=== PATIENT | male | born 1995 | race Caucasian/White ===

== ENCOUNTER 2018-08-27 18:13 | Emergency (ER) | payer OTHER ==
[2018-08-27] MEDS ORDERED: Ketorolac 60 MG/2 ML SDV IM ONE (18:32)
--- NOTE | 2018-08-27 18:48 | EDM.PDOC ---
ED HPI GENERAL MEDICAL PROBLEM - General Chief Complaint: Headache Stated Complaint: HEADACHE Time Seen by Provider: 08/27/18 18:16 Source of Information: Reports: Patient History Limitations: Reports: No Limitations - History of Present Illness INITIAL COMMENTS - FREE TEXT/NARRATIVE: History of present illness: []Patient's had a proximal 4 year history of migraine headaches with one starting a week ago that has been persistent. Excedrin Migraine with mild relief. Her's, chills, vomiting or diarrhea. He was nauseated but denies any symptoms now. Patient feels that he has a sinus infection he also feels pressure over his face. Review of systems: As per history of present illness and below otherwise all systems reviewed and negative. Past medical history: As per history of present illness and as reviewed below otherwise noncontributory. Surgical history: As per history of present illness and as reviewed below otherwise noncontributory. Social history: No reported history of drug or alcohol abuse. Family history: As per history of present illness and as reviewed below otherwise noncontributory. Physical exam: General: Well developed, well nourished in NAD HEENT: Atraumatic, normocephalic, pupils reactive, negative for conjunctival pallor or scleral icterus, mucous membranes moist, throat clear, neck supple, nontender, trachea midline. No Nuchal rigidity, mild tenderness to frontal and maxillary sinuses on palpation Lungs: Clear to auscultation, breath sounds equal bilaterally, chest nontender. Heart: S1S2, regular, negative for clicks, rubs, or JVD. Abdomen: NABS, Soft, nondistended, nontender. Negative for masses or hepatosplenomegaly. Negative for costovertebral tenderness. Pelvis: Stable nontender. Genitourinary: Deferred. Rectal: Deferred. Extremities: Atraumatic, negative for cords or calf pain. Neurovascular unremarkable. Neuro: Awake, alert, oriented. Cranial nerves II through XII unremarkable. Cerebellum unremarkable. Motor and sensory unremarkable throughout. Exam nonfocal. Skin:warm and dry Diagnostics: None Therapeutics: Toradol, Zofran ED Course: Unremarkable Impression: Cephalgia Prescriptions: Zofran Plan: Use [id number] pain meds, Zofran for nausea and follow up with primary care. Definitive disposition and diagnosis as appropriate pending reevaluation and review of above. Headache Pain Score (Numeric/FACES): 5 - Related Data Allergies Allergy/AdvReac Type Severity Reaction Status Date / Time No Known Allergies Allergy Verified 08/27/18 18:28 Home Meds: Home Meds Ondansetron HCl [Zofran] 4 mg PO Q4HR #12 tablet 08/27/18 [Rx] SUMAtriptan [Imitrex] 50 mg PO ASDIRECTED PRN #6 tablet 08/27/18 [Rx] Past Medical History - Past Health History Medical/Surgical History: Denies Medical/Surgical History Musculoskeletal History: Reports: Other (See Below) Other Musculoskeletal History: right knee tore acl. - Infectious Disease History Infectious Disease History: Reports: Mononucleosis - Past Surgical History HEENT Surgical History: Reports: Tonsillectomy Musculoskeletal Surgical History: Reports: Other (See Below) Other Musculoskeletal Surgeries/Procedures:: knee surgery Social & Family History - Family History Family Medical History: Noncontributory - Tobacco Use Smoking Status *Q: Never Smoker - Caffeine Use Caffeine Use: Reports: Energy Drinks - Recreational Drug Use Recreational Drug Use: No ED ROS GENERAL - Review of Systems Review Of Systems: ROS reveals no pertinent complaints other than HPI. - Physical Exam Exam: See Below (See history of present illness) Course - Vital Signs Last Recorded V/S: Last Vital Signs Temp 97.7 F 08/27/18 18:25 Pulse 54 L 08/27/18 18:25 Resp 18 08/27/18 18:25 BP 127/78 08/27/18 18:25 Pulse Ox 100 08/27/18 18:25 - Orders/Labs/Meds Meds: Medications Discontinued Medications Generic Name Dose Route Start Last Admin Trade Name Terrell PRN Reason Stop Dose Admin Ketorolac Tromethamine 60 mg 08/27/18 18:32 08/27/18 18:51 Toradol IM 08/27/18 18:33 60 mg ONETIME ONE Administration Departure - Departure Time of Disposition: 19:14 Disposition: Home, Self-Care 01 Condition: Good Clinical Impression: Cephalgia Qualifiers: Headache type: unspecified Headache chronicity pattern: episodic headache Intractability: not intractable Qualified Code(s): R51 - Headache - Discharge Information *PRESCRIPTION DRUG MONITORING PROGRAM REVIEWED*: No *COPY OF PRESCRIPTION DRUG MONITORING REPORT IN PATIENT VIRGIL: No Prescriptions: Ondansetron HCl [Zofran] 4 mg PO Q4HR #12 tablet SUMAtriptan [Imitrex] 50 mg PO ASDIRECTED PRN #6 tablet PRN Reason: Pain Referrals: PCP,Unknown [Primary Care Provider] - Forms: ED Department Discharge Additional Instructions: The following information is given to patients seen in the emergency department who are being discharged to home. This information is to outline your options for follow-up care. We provide all patients seen in our emergency department with a follow-up referral. The need for follow-up, as well as the timing and circumstances, are variable depending upon the specifics of your emergency department visit. If you don't have a primary care physician on staff, we will provide you with a referral. We always advise you to contact your personal physician following an emergency department visit to inform them of the circumstance of the visit and for follow-up with them and/or the need for any referrals to a consulting specialist. The emergency department will also refer you to a specialist when appropriate. This referral assures that you have the opportunity for follow-up care with a specialist. All of these measure are taken in an effort to provide you with optimal care, which includes your follow-up. Under all circumstances we always encourage you to contact your private physician who remains a resource for coordinating your care. When calling for follow-up care, please make the office aware that this follow-up is from your recent emergency room visit. If for any reason you are refused follow-up, please contact the [facility] Emergency Department at and asked to speak to the emergency department charge nurse. [facility] [address] [place] [id number]
== END 2018-08-27 19:30 | disposition home or self-care (01) ==
LOC: MW.ED 18:13
DX: R51 Headache (principal)
CPT/HCPCS: 96372; 99283; J1885

== ENCOUNTER 2018-11-07 11:30 | Emergency (ER) | payer OTHER ==
[2018-11-07] MEDS ORDERED: Sodium Chloride 0.9% 1,000 ML IV ONE (12:08)
[2018-11-07] MEDS ORDERED: Ondansetron 4 MG/2 ML SDV IVPUSH ONE (12:08)
[2018-11-07] MEDS ORDERED: Ketorolac 30 MG/ML SDV IVPUSH ONE (12:08)
[2018-11-07] MEDS ORDERED: diphenhydrAMINE 50 MG/ML SDV IVPUSH ONE (12:08)
[2018-11-07] MEDS ORDERED: Metoclopramide 10 MG/2 ML SDV IV ONE (12:08)
--- NOTE | 2018-11-07 12:13 | EDM.PDOC ---
ED HPI GENERAL MEDICAL PROBLEM - General Chief Complaint: Headache Stated Complaint: HEADACHE Time Seen by Provider: 11/07/18 11:58 - History of Present Illness INITIAL COMMENTS - FREE TEXT/NARRATIVE: HISTORY AND PHYSICAL: History of present illness: Patient's 23-year-old white male history of chronic headaches and a family history of migraines who presents with concern of headache nausea vomiting photophobia he denies trauma denies fever chills neck pain stiffness or other complaints he denies having had any imaging does not carry a formal diagnosis of migraine himself. Review of systems: As per history of present illness and below otherwise all systems reviewed and negative. Past medical history: As per history of present illness and as reviewed below otherwise noncontributory. Surgical history: As per history of present illness and as reviewed below otherwise noncontributory. Social history: No reported history of drug or alcohol abuse. Family history: As per history of present illness and as reviewed below otherwise noncontributory. Physical exam: HEENT: Atraumatic, normocephalic, pupils reactive, negative for conjunctival pallor or scleral icterus, mucous membranes moist, throat clear, neck supple, nontender, trachea midline. Lungs: Clear to auscultation, breath sounds equal bilaterally, chest nontender. Heart: S1S2, regular, negative for clicks, rubs, or JVD. Abdomen: Soft, nondistended, nontender. Negative for masses or hepatosplenomegaly. Negative for costovertebral tenderness. Pelvis: Stable nontender. Genitourinary: Deferred. Rectal: Deferred. Extremities: Atraumatic, negative for cords or calf pain. Neurovascular unremarkable. Neuro: Awake, alert, oriented. Cranial nerves II through XII unremarkable. Cerebellum unremarkable. Motor and sensory unremarkable throughout. Exam nonfocal. Diagnostics: CT brain Therapeutics: Saline 1 L bolus Zofran 4 mg IV Toradol 30 mg IV Reglan 10 mg IV Benadryl 50 mg IV Impression: #1 cephalgia rule out migraine headache Definitive disposition and diagnosis as appropriate pending reevaluation and review of above. Headache Pain Score (Numeric/FACES): 8 - Related Data Allergies Allergy/AdvReac Type Severity Reaction Status Date / Time No Known Allergies Allergy Verified 11/07/18 11:48 Home Meds: Home Meds . [No Known Home Meds] 11/07/18 [History] Past Medical History - Past Health History Medical/Surgical History: Denies Medical/Surgical History Musculoskeletal History: Reports: Other (See Below) Other Musculoskeletal History: right knee tore acl. - Infectious Disease History Infectious Disease History: Reports: None - Past Surgical History HEENT Surgical History: Reports: Tonsillectomy Musculoskeletal Surgical History: Reports: Other (See Below) Other Musculoskeletal Surgeries/Procedures:: knee surgery Social & Family History - Family History Family Medical History: Noncontributory - Tobacco Use Smoking Status *Q: Never Smoker - Caffeine Use Caffeine Use: Reports: None - Recreational Drug Use Recreational Drug Use: No ED ROS GENERAL - Review of Systems Review Of Systems: ROS reveals no pertinent complaints other than HPI. ED EXAM, GENERAL - Physical Exam Exam: See Below (See dictation) Course - Vital Signs Last Recorded V/S: Last Vital Signs Temp 36.2 C 11/07/18 11:48 Pulse 80 11/07/18 11:48 Resp 15 11/07/18 11:48 BP 122/73 11/07/18 11:48 Pulse Ox 98 11/07/18 11:48 - Orders/Labs/Meds Orders: Active Orders 24 hr Category Date Time Status Head wo Cont [CT] Stat Exams 11/07/18 12:08 Taken Meds: Medications Discontinued Medications Generic Name Dose Route Start Last Admin Trade Name Terrell PRN Reason Stop Dose Admin Diphenhydramine HCl 50 mg 11/07/18 12:08 11/07/18 12:20 Benadryl IVPUSH 11/07/18 12:09 50 mg ONETIME ONE Administration Sodium Chloride 1,000 mls @ 999 mls/hr 11/07/18 12:08 11/07/18 12:19 Normal Saline IV 11/07/18 13:08 999 mls/hr STAT ONE Administration Ketorolac Tromethamine 30 mg 11/07/18 12:08 11/07/18 12:22 Toradol IVPUSH 11/07/18 12:09 30 mg ONETIME ONE Administration Metoclopramide HCl 10 mg 11/07/18 12:08 11/07/18 12:29 Reglan IV 11/07/18 12:09 10 mg ONETIME ONE Administration Ondansetron HCl 4 mg 11/07/18 12:08 11/07/18 12:24 Zofran IVPUSH 11/07/18 12:09 4 mg ONETIME ONE Administration Departure - Departure Time of Disposition: 13:30 Disposition: Home, Self-Care 01 Condition: Good Clinical Impression: Cephalgia Qualifiers: Headache type: unspecified Headache chronicity pattern: episodic headache Intractability: not intractable Qualified Code(s): R51 - Headache - Discharge Information Referrals: PCP,None [Primary Care Provider] - Forms: ED Department Discharge Additional Instructions: The following information is given to patients seen in the emergency department who are being discharged to home. This information is to outline your options for follow-up care. We provide all patients seen in our emergency department with a follow-up referral. The need for follow-up, as well as the timing and circumstances, are variable depending upon the specifics of your emergency department visit. If you don't have a primary care physician on staff, we will provide you with a referral. We always advise you to contact your personal physician following an emergency department visit to inform them of the circumstance of the visit and for follow-up with them and/or the need for any referrals to a consulting specialist. The emergency department will also refer you to a specialist when appropriate. This referral assures that you have the opportunity for followup care with a specialist. All of these measure are taken in an effort to provide you with optimal care, which includes your followup. Under all circumstances we always encourage you to contact your private physician who remains a resource for coordinating your care. When calling for followup care, please make the office aware that this follow-up is from your recent emergency room visit. If for any reason you are refused follow-up, please contact the emergency department at and asked to speak to the emergency department charge nurse. [facility] [address] [place] [id number] Follow-up primary care as needed as discussed return as needed as discussed - My Orders Last 24 Hours: My Active Orders 11/07/18 12:08 Head wo Cont [CT] Stat - Assessment/Plan Last 24 Hours: My Active Orders 11/07/18 12:08 Head wo Cont [CT] Stat
--- NOTE | 2018-11-07 13:35 | CT ---
EXAMINATION: Non contrast CT head. Coronal and sagittal reformats. HISTORY: Pain FINDINGS: No evidence of intra or extra axial hemorrhage, mass, midline shift, hydrocephalus or edema. No hypoattenuation changes in the major vascular territories to suggest acute infarct. No abnormal intracranial calcifications are detected. No evidence of substantial vascular calcifications. Paranasal sinuses and mastoid air cells are well aerated without substantial findings. Pituitary fossa appears unremarkable. Orbits and globes are symmetric. Calvarium is intact. No evidence of skull fracture. IMPRESSION: No acute intracranial findings.
== END 2018-11-07 13:54 | disposition home or self-care (01) ==
LOC: MW.ED 11:30
DX: R51 Headache (principal)
CPT/HCPCS: 70450; 96361; 96374; 96375; 99284; J1200; J1885; J2405; J2765; J7040

== ENCOUNTER 2019-01-08 17:31 | Emergency (ER) | payer OTHER ==
--- NOTE | 2019-01-08 17:42 | EDM.PDOC ---
ED HPI GENERAL MEDICAL PROBLEM - General Chief Complaint: Genitourinary Problem Stated Complaint: GROIN/PELVIS PAIN Time Seen by Provider: 01/08/19 17:33 - History of Present Illness INITIAL COMMENTS - FREE TEXT/NARRATIVE: HISTORY AND PHYSICAL: History of present illness: Patient's 23-year-old white male presents with testicular pain status post intercourse he denies urethral discharge denies dysuria denies history of STD denies any concern of possible STD is here with his both are monogamous and neither had a history of STD neither have a concern of STD Review of systems: As per history of present illness and below otherwise all systems reviewed and negative. Past medical history: As per history of present illness and as reviewed below otherwise noncontributory. Surgical history: As per history of present illness and as reviewed below otherwise noncontributory. Social history: No reported history of drug or alcohol abuse. Family history: As per history of present illness and as reviewed below otherwise noncontributory. Physical exam: HEENT: Atraumatic, normocephalic, pupils reactive, negative for conjunctival pallor or scleral icterus, mucous membranes moist, throat clear, neck supple, nontender, trachea midline. Lungs: Clear to auscultation, breath sounds equal bilaterally, chest nontender. Heart: S1S2, regular, negative for clicks, rubs, or JVD. Abdomen: Soft, nondistended, nontender. Negative for masses or hepatosplenomegaly. Negative for costovertebral tenderness. Pelvis: Stable nontender. Genitourinary: Patient has some mild tenderness of the epididymis right greater than left is no significant swelling noted no masses no hernia no penile lesions or urethral discharge. Rectal: Deferred. Extremities: Atraumatic, negative for cords or calf pain. Neurovascular unremarkable. Neuro: Awake, alert, oriented. Cranial nerves II through XII unremarkable. Cerebellum unremarkable. Motor and sensory unremarkable throughout. Exam nonfocal. Diagnostics: UA urine for GC chlamydia scrotal ultrasound Therapeutics: None Impression: #1 epididymitis Definitive disposition and diagnosis as appropriate pending reevaluation and review of above. - Related Data Allergies Allergy/AdvReac Type Severity Reaction Status Date / Time No Known Allergies Allergy Verified 11/07/18 11:48 Home Meds: Home Meds Propranolol [Inderal LA 24 Hr] 80 mg PO BEDTIME 01/08/19 [History] Past Medical History - Past Health History Medical/Surgical History: Denies Medical/Surgical History Musculoskeletal History: Reports: Other (See Below) Other Musculoskeletal History: right knee tore acl. - Infectious Disease History Infectious Disease History: Reports: None - Past Surgical History HEENT Surgical History: Reports: Tonsillectomy Musculoskeletal Surgical History: Reports: Other (See Below) Other Musculoskeletal Surgeries/Procedures:: knee surgery Social & Family History - Family History Family Medical History: Noncontributory - Caffeine Use Caffeine Use: Reports: None ED ROS GENERAL - Review of Systems Review Of Systems: ROS reveals no pertinent complaints other than HPI. ED EXAM, GENERAL - Physical Exam Exam: See Below (The dictation) Course - Vital Signs Last Recorded V/S: Last Vital Signs Temp 36.9 C 01/08/19 19:11 Pulse 51 L 01/08/19 19:11 Resp 18 01/08/19 17:35 BP 111/64 01/08/19 19:11 Pulse Ox 98 01/08/19 19:11 - Orders/Labs/Meds Orders: Active Orders 24 hr Category Date Time Status Scrotal Duplex Ltd [US] Routine Exams 01/08/19 Taken CHLAMYDIA AND GONORRHEA BY TMA Stat Lab 01/08/19 17:45 Received Labs: Laboratory Tests 01/08/19 Range/Units 17:45 Urine Color DARK YELLOW Urine Appearance HAZY Urine pH 6.5 (5.0-8.0) Ur Specific [place] 1.020 (1.001-1.035) Urine Protein NEGATIVE (NEGATIVE) mg/dL Urine Glucose (UA) NEGATIVE (NEGATIVE) mg/dL Urine Ketones NEGATIVE (NEGATIVE) mg/dL Urine Occult Blood NEGATIVE (NEGATIVE) Urine Nitrite NEGATIVE (NEGATIVE) Urine Bilirubin NEGATIVE (NEGATIVE) Urine Urobilinogen 0.2 (<2.0) EU/dL Ur Leukocyte Esterase NEGATIVE (NEGATIVE) Departure - Departure Time of Disposition: 19:41 Disposition: Home, Self-Care 01 Condition: Good Clinical Impression: Epididymitis - Discharge Information Referrals: PCP,None [Primary Care Provider] - Forms: ED Department Discharge Additional Instructions: The following information is given to patients seen in the emergency department who are being discharged to home. This information is to outline your options for follow-up care. We provide all patients seen in our emergency department with a follow-up referral. The need for follow-up, as well as the timing and circumstances, are variable depending upon the specifics of your emergency department visit. If you don't have a primary care physician on staff, we will provide you with a referral. We always advise you to contact your personal physician following an emergency department visit to inform them of the circumstance of the visit and for follow-up with them and/or the need for any referrals to a consulting specialist. The emergency department will also refer you to a specialist when appropriate. This referral assures that you have the opportunity for followup care with a specialist. All of these measure are taken in an effort to provide you with optimal care, which includes your followup. Under all circumstances we always encourage you to contact your private physician who remains a resource for coordinating your care. When calling for followup care, please make the office aware that this follow-up is from your recent emergency room visit. If for any reason you are refused follow-up, please contact the [facility] emergency department at and asked to speak to the emergency department charge nurse. [facility] Specialty Care - Urology [address] [place] [id number] Doxycycline as prescribed follow-up urology above athletic supporter as directed return as needed as discussed - My Orders Last 24 Hours: My Active Orders 01/08/19 Scrotal Duplex Ltd [US] Routine 01/08/19 17:45 CHLAMYDIA AND GONORRHEA BY TMA Stat - Assessment/Plan Last 24 Hours: My Active Orders 01/08/19 Scrotal Duplex Ltd [US] Routine 01/08/19 17:45 CHLAMYDIA AND GONORRHEA BY TMA Stat
--- NOTE | 2019-01-08 19:26 | US ---
TECHNIQUE: Scrotal ultrasound with grayscale, color spectral Doppler images. INDICATION: Testicular pain. FINDINGS: Both testicles have normal parenchymal echogenicity with no solid intratesticular mass. There is normal symmetric color and spectral Doppler flow to both testicles. Both epididymides appear normal. No hydrocele. IMPRESSION: Normal scrotal ultrasound. Dictated by Jaspal Garcia MD @ 01/08/2019 7:24:03 PM Dictated by: Jaspal Garcia MD @ 01/08/2019 19:24:24 (Electronically Signed)
--- NOTE | 2019-01-09 18:14 | US ---
EXAM DATE: 01/08/19 PATIENT'S AGE: 23 Patient: ELEN MELTON Facility: [facility] Site . Site : 1995 Study: US-Testicle [id number]/23/2019 7:10:49 PM Ordering Physician: Deyvi Lainez Final Report: TECHNIQUE: Scrotal ultrasound with grayscale, color spectral Doppler images. INDICATION: Testicular pain. FINDINGS: Both testicles have normal parenchymal echogenicity with no solid intratesticular mass. There is normal symmetric color and spectral Doppler flow to both testicles. Both epididymides appear normal. No hydrocele. IMPRESSION: Normal scrotal ultrasound. Dictated by Jaspal Garcia MD @ 01/08/2019 7:24:03 PM Dictated by: Jaspal Garcia MD @ 01/08/2019 19:24:24 Signed by: Jaspal Garcia MD @01/08/2019 7:24:24 PM (Electronic Signature) Report Signed by Proxy. MATTHEW
== END 2019-01-08 19:55 | disposition home or self-care (01) ==
LOC: MW.ED 17:31
DX: N45.1 Epididymitis (principal)
CPT/HCPCS: 76870; 76870-26; 81003; 87491; 87591; 93976; 93976-26; 99282; 99284-25

== ENCOUNTER 2019-02-05 22:02 | Emergency (ER) | payer OTHER ==
--- NOTE | 2019-02-05 22:10 | EDM.PDOC ---
ED HPI GENERAL MEDICAL PROBLEM - General Chief Complaint: Head Injury Stated Complaint: MIGRAINE Time Seen by Provider: 02/05/19 22:04 Source of Information: Reports: Patient History Limitations: Reports: No Limitations - History of Present Illness INITIAL COMMENTS - FREE TEXT/NARRATIVE: HISTORY AND PHYSICAL: History of present illness: Patient is a 23-year-old male who presents to the emergency room with complaints of a migraine headache. He reports most the pain is frontal on the left side. It is associated with light and noise sensitivity. He has a long- standing history of migraine headaches, these do feel similar. States he was recently placed on propranolol to help minimize the frequency of his migraine recurrences. He states that he was getting migraines every other day prior to starting the propranolol, now he may get 1 to 2 a month. Denies any head injury , trauma or falls. Patient denies any fever, chills, change in vision, syncope or near syncope. Denies any chest pain, back pain, shortness of breath or cough. Denies any abdominal pain, nausea, vomiting, diarrhea, constipation or dysuria. Has not noted any blood in urine or stool. Patient has been eating and drinking appropriately. Review of systems: As per history of present illness and below otherwise all systems reviewed and negative. Past medical history: As per history of present illness and as reviewed below otherwise noncontributory. Surgical history: As per history of present illness and as reviewed below otherwise noncontributory. Social history: See social history for further information Family history: As per history of present illness and as reviewed below otherwise noncontributory. Physical exam: General: Well-developed and well-nourished 23-year-old male. Alert and oriented. Nontoxic appearing and in no acute distress. HEENT: Atraumatic, normocephalic, pupils equal and reactive bilaterally, negative for conjunctival pallor or scleral icterus, mucous membranes moist, TMs normal bilaterally, throat clear, neck supple, nontender, trachea midline. No drooling or trismus noted. No meningeal signs. No hot potato voice noted. Lungs: Clear to auscultation, breath sounds equal bilaterally, chest nontender. Heart: S1S2, regular rate and rhythm without overt murmur Abdomen: Soft, nondistended, nontender. Skin: Intact, warm, dry. No lesions or rashes noted. Extremities: Atraumatic, moves all extremities per self without difficulty or deficits, negative for cords or calf pain. Neurovascular unremarkable. Neuro: Awake, alert, oriented. Cranial nerves II through XII unremarkable. Cerebellum unremarkable. Motor and sensory unremarkable throughout. Exam nonfocal. Notes: Patient states he has had multiple head CTs in the past for his migraines. Does see a primary care and neurologist for migraine management. He is agreeable to IV fluids and medications. Vital signs remain stable. Patient found relief with IV fluids and medications. Encouraged him to follow up with primary care. Supportive care measures were reviewed and discussed. Voices understanding and is agreeable to plan of care. Denies any further questions or concerns at this time. Diagnostics: None Therapeutics: Benadryl, Reglan, Zofran, Toradol, IV fluid Prescription: None Impression: Migraine headache Plan: 1. Please take the remainder of the day to rest. He may use Tylenol and/or ibuprofen as needed for pain management. 2. Follow-up with your primary care provider as we discussed. Return to the ED as needed and as discussed. Definitive disposition and diagnosis as appropriate pending reevaluation and review of above. Head Pain Score (Numeric/FACES): 10 - Related Data Allergies Allergy/AdvReac Type Severity Reaction Status Date / Time No Known Allergies Allergy Verified 02/05/19 22:22 Home Meds: Home Meds Propranolol [Inderal LA 24 Hr] 80 mg PO BEDTIME 01/08/19 [History] Past Medical History - Past Health History Medical/Surgical History: Denies Medical/Surgical History Musculoskeletal History: Reports: Other (See Below) Other Musculoskeletal History: right knee tore acl. - Infectious Disease History Infectious Disease History: Reports: None - Past Surgical History HEENT Surgical History: Reports: Tonsillectomy Musculoskeletal Surgical History: Reports: Other (See Below) Other Musculoskeletal Surgeries/Procedures:: knee surgery Social & Family History - Family History Family Medical History: Noncontributory - Caffeine Use Caffeine Use: Reports: None ED ROS GENERAL - Review of Systems Review Of Systems: ROS reveals no pertinent complaints other than HPI. ED EXAM, HEAD INJURY - Physical Exam Exam: See Below (See dictation) Course - Vital Signs Last Recorded V/S: Last Vital Signs Temp 96.5 F 02/05/19 22:22 Pulse 50 L 02/05/19 22:22 Resp 16 02/05/19 22:22 BP 116/71 02/05/19 22:22 Pulse Ox 100 02/05/19 22:22 - Orders/Labs/Meds Orders: Active Orders 24 hr Category Date Time Status Sodium Chloride 0.9% [Normal Saline] 1,000 ml Med 02/05/19 22:27 Ordered IV .Bolus Medication Orders Sodium Chloride (Normal Saline) 1,000 mls @ 999 mls/hr IV .Bolus ONE Stop: 02/05/19 23:27 Last Admin: 02/05/19 22:37 Dose: 999 mls/hr Meds: Medications Generic Name Dose Route Start Last Admin Trade Name Freq PRN Reason Stop Dose Admin Sodium Chloride 1,000 mls @ 999 mls/hr 02/05/19 22:27 02/05/19 22:37 Normal Saline IV 02/05/19 23:27 999 mls/hr .Bolus ONE Administration Discontinued Medications Generic Name Dose Route Start Last Admin Trade Name Freq PRN Reason Stop Dose Admin Diphenhydramine HCl 50 mg 02/05/19 22:27 02/05/19 22:41 Benadryl IVPUSH 02/05/19 22:28 50 mg ONETIME ONE Administration Ketorolac Tromethamine 30 mg 02/05/19 22:27 02/05/19 22:39 Toradol IVPUSH 02/05/19 22:28 30 mg ONETIME ONE Administration Metoclopramide HCl 5 mg 02/05/19 22:27 02/05/19 22:43 Reglan IVPUSH 02/05/19 22:28 5 mg ONETIME ONE Administration Ondansetron HCl 4 mg 02/05/19 22:27 02/05/19 22:37 Zofran IVPUSH 02/05/19 22:28 4 mg ONETIME ONE Administration Departure - Departure Time of Disposition: 22:58 Disposition: Home, Self-Care 01 Clinical Impression: Migraine - Discharge Information Instructions: Migraine Headache, [id number] Referrals: PCP,None [Primary Care Provider] - Forms: ED Department Discharge Additional Instructions: The following information is given to patients seen in the emergency department who are being discharged to home. This information is to outline your options for follow-up care. We provide all patients seen in our emergency department with a follow-up referral. The need for follow-up, as well as the timing and circumstances, are variable depending upon the specifics of your emergency department visit. If you don't have a primary care physician on staff, we will provide you with a referral. We always advise you to contact your personal physician following an emergency department visit to inform them of the circumstance of the visit and for follow-up with them and/or the need for any referrals to a consulting specialist. The emergency department will also refer you to a specialist when appropriate. This referral assures that you have the opportunity for follow-up care with a specialist. All of these measure are taken in an effort to provide you with optimal care, which includes your follow-up. Under all circumstances we always encourage you to contact your private physician who remains a resource for coordinating your care. When calling for follow-up care, please make the office aware that this follow-up is from your recent emergency room visit. If for any reason you are refused follow-up, please contact the [facility] at and asked to speak to the emergency department charge nurse. [facility] [address] [place] [id number] [place] [address] 1. Please take the remainder of the day to rest. He may use Tylenol and/or ibuprofen as needed for pain management. 2. Follow-up with your primary care provider as we discussed. Return to the ED as needed and as discussed. - My Orders Last 24 Hours: My Active Orders 02/05/19 22:27 Sodium Chloride 0.9% [Normal Saline] 1,000 ml IV .Bolus - Assessment/Plan Last 24 Hours: My Active Orders 02/05/19 22:27 Sodium Chloride 0.9% [Normal Saline] 1,000 ml IV .Bolus
[2019-02-05] MEDS ORDERED: Metoclopramide 10 MG/2 ML SDV IVPUSH ONE (22:27)
[2019-02-05] MEDS ORDERED: Ondansetron 4 MG/2 ML SDV IVPUSH ONE (22:27)
[2019-02-05] MEDS ORDERED: Ketorolac 30 MG/ML SDV IVPUSH ONE (22:27)
[2019-02-05] MEDS ORDERED: Sodium Chloride 0.9% 1,000 ML IV ONE (22:27)
[2019-02-05] MEDS ORDERED: diphenhydrAMINE 50 MG/ML SDV IVPUSH ONE (22:27)
== END 2019-02-05 23:37 | disposition home or self-care (01) ==
LOC: MW.ED 22:02
DX: G43.909 Migraine, unspecified, not intractable, without status migrainosus (principal); Z79.899 Other long term (current) drug therapy
CPT/HCPCS: 96361; 96374; 96375; 99283; J1200; J1885; J2405; J2765; J7040; 99282

== ENCOUNTER 2019-03-25 22:45 | Emergency (ER) | payer OTHER ==
[2019-03-25] MEDS ORDERED: Sodium Chloride 0.9% 1,000 ML IV ONE (22:52)
[2019-03-25] MEDS ORDERED: diphenhydrAMINE 50 MG/ML SDV IVPUSH ONE (22:52)
[2019-03-25] MEDS ORDERED: Ketorolac 30 MG/ML SDV IVPUSH ONE (22:52)
[2019-03-25] MEDS ORDERED: Metoclopramide 10 MG/2 ML SDV IV ONE (22:52)
--- NOTE | 2019-03-25 22:55 | EDM.PDOC ---
ED HPI GENERAL MEDICAL PROBLEM - General Chief Complaint: Headache Stated Complaint: SEVERE MIGRAINE Time Seen by Provider: 03/25/19 22:51 - History of Present Illness INITIAL COMMENTS - FREE TEXT/NARRATIVE: HISTORY AND PHYSICAL: History of present illness: Patient is a 23-year-old white male history migraine headache wasn't seen on prior occasions and has had a stent workup including CT of his brain he was put on propanolol also uses Zomig and has had dramatic improvement in the frequency. Denies episodes been unrelenting with associated nausea and vomiting he's had no trauma no fever chills or other complaints states this is a typical migraine. Review of systems: As per history of present illness and below otherwise all systems reviewed and negative. Past medical history: As per history of present illness and as reviewed below otherwise noncontributory. Surgical history: As per history of present illness and as reviewed below otherwise noncontributory. Social history: No reported history of drug or alcohol abuse. Family history: As per history of present illness and as reviewed below otherwise noncontributory. Physical exam: HEENT: Atraumatic, normocephalic, pupils reactive, negative for conjunctival pallor or scleral icterus, mucous membranes moist, throat clear, neck supple, nontender, trachea midline. Lungs: Clear to auscultation, breath sounds equal bilaterally, chest nontender. Heart: S1S2, regular, negative for clicks, rubs, or JVD. Abdomen: Soft, nondistended, nontender. Negative for masses or hepatosplenomegaly. Negative for costovertebral tenderness. Pelvis: Stable nontender. Genitourinary: Deferred. Rectal: Deferred. Extremities: Atraumatic, negative for cords or calf pain. Neurovascular unremarkable. Neuro: Awake, alert, oriented. Cranial nerves II through XII unremarkable. Cerebellum unremarkable. Motor and sensory unremarkable throughout. Exam nonfocal. Diagnostics: None Therapeutics: Saline 1 L bolus Toradol 30 mg IV Zofran for millirems IV Benadryl 50 mg IV and Reglan 10 mg IV Impression: #1 migraine headache Definitive disposition and diagnosis as appropriate pending reevaluation and review of above. - Related Data Allergies Allergy/AdvReac Type Severity Reaction Status Date / Time No Known Allergies Allergy Verified 03/25/19 22:50 Home Meds: Home Meds Propranolol [Inderal LA 24 Hr] 80 mg PO BID 01/08/19 [History] Past Medical History - Past Health History Medical/Surgical History: Denies Medical/Surgical History Musculoskeletal History: Reports: Other (See Below) Other Musculoskeletal History: right knee tore acl. - Infectious Disease History Infectious Disease History: Reports: None - Past Surgical History HEENT Surgical History: Reports: Tonsillectomy Musculoskeletal Surgical History: Reports: Other (See Below) Other Musculoskeletal Surgeries/Procedures:: knee surgery Social & Family History - Family History Family Medical History: Noncontributory - Caffeine Use Caffeine Use: Reports: None ED ROS GENERAL - Review of Systems Review Of Systems: ROS reveals no pertinent complaints other than HPI. ED EXAM, GENERAL - Physical Exam Exam: See Below (See dictation) Course - Orders/Labs/Meds Orders: Active Orders 24 hr Category Date Time Status Ketorolac [Toradol] Med 03/25/19 22:52 Once 30 mg IVPUSH ONETIME ONE Metoclopramide [Reglan] Med 03/25/19 22:52 Once 10 mg IV ONETIME ONE Sodium Chloride 0.9% [Normal Saline] 1,000 ml Med 03/25/19 22:52 Ordered IV STAT diphenhydrAMINE [Benadryl] Med 03/25/19 22:52 Once 50 mg IVPUSH ONETIME ONE Departure - Departure Time of Disposition: 22:54 Disposition: Home, Self-Care 01 Condition: Good Clinical Impression: Migraine - Discharge Information Referrals: Kassandra Perera [employer] [Primary Care Provider] - Additional Instructions: The following information is given to patients seen in the emergency department who are being discharged to home. This information is to outline your options for follow-up care. We provide all patients seen in our emergency department with a follow-up referral. The need for follow-up, as well as the timing and circumstances, are variable depending upon the specifics of your emergency department visit. If you don't have a primary care physician on staff, we will provide you with a referral. We always advise you to contact your personal physician following an emergency department visit to inform them of the circumstance of the visit and for follow-up with them and/or the need for any referrals to a consulting specialist. The emergency department will also refer you to a specialist when appropriate. This referral assures that you have the opportunity for followup care with a specialist. All of these measure are taken in an effort to provide you with optimal care, which includes your followup. Under all circumstances we always encourage you to contact your private physician who remains a resource for coordinating your care. When calling for followup care, please make the office aware that this follow-up is from your recent emergency room visit. If for any reason you are refused follow-up, please contact the [facility] emergency department at and asked to speak to the emergency department charge nurse. Continue home medications as directed follow-up primary medical doctor as needed as discussed return as needed as discussed - My Orders Last 24 Hours: My Active Orders 03/25/19 22:52 Ketorolac [Toradol] 30 mg IVPUSH ONETIME ONE Metoclopramide [Reglan] 10 mg IV ONETIME ONE Sodium Chloride 0.9% [Normal Saline] 1,000 ml IV STAT diphenhydrAMINE [Benadryl] 50 mg IVPUSH ONETIME ONE - Assessment/Plan Last 24 Hours: My Active Orders 03/25/19 22:52 Ketorolac [Toradol] 30 mg IVPUSH ONETIME ONE Metoclopramide [Reglan] 10 mg IV ONETIME ONE Sodium Chloride 0.9% [Normal Saline] 1,000 ml IV STAT diphenhydrAMINE [Benadryl] 50 mg IVPUSH ONETIME ONE
== END 2019-03-26 00:29 | disposition home or self-care (01) ==
LOC: MW.ED 22:45
DX: G43.909 Migraine, unspecified, not intractable, without status migrainosus (principal)
CPT/HCPCS: 96361; 96374; 96375; 99283; J1200; J1885; J2765; J7040

== ENCOUNTER 2019-04-25 17:01 | Emergency (ER) | payer OTHER ==
[2019-04-25] MEDS ORDERED: Ketorolac 60 MG/2 ML SDV IM ONE (17:32)
--- NOTE | 2019-04-25 17:33 | CR ---
Indication: Pain. Shortness breath. Technique: Single AP portable view of the chest was obtained. Comparison: None Findings: The heart is normal in size. The lungs are clear. No infiltrate, pleural effusion, or pneumothorax is identified. Impression: No acute cardiopulmonary process. Dictated by Serina Johnson MD @ Apr 25 2019 5:30PM Signed by Dr. Serina Johnson @ Apr 25 2019 5:31PM
--- NOTE | 2019-04-25 17:33 | EDM.PDOC ---
ED HPI GENERAL MEDICAL PROBLEM - General Chief Complaint: Abdominal Pain Stated Complaint: CHEST PAIN Time Seen by Provider: 04/25/19 17:04 Source of Information: Reports: Patient History Limitations: Reports: No Limitations - History of Present Illness INITIAL COMMENTS - FREE TEXT/NARRATIVE: History of present illness: []Patient was standing around 9:30 this morning kicking his tires to see if there was enough air in them when he felt sudden pain in his left lower chest is sharp and worse with exhaling. Patient did not lean over his car or have any chest wall trauma prior. He also denies any fevers, chills, cough, shortness of breath back pain. She has a history of migraines and his dose of propranolol was doubled this morning and feeling the pain. Neurologist who told him to go back to his usual dose. Review of systems: As per history of present illness and below otherwise all systems reviewed and negative. Past medical history: As per history of present illness and as reviewed below otherwise noncontributory. Surgical history: As per history of present illness and as reviewed below otherwise noncontributory. Social history: No reported history of drug or alcohol abuse. Family history: As per history of present illness and as reviewed below otherwise noncontributory. Physical exam: General: Well developed, well nourished in NAD HEENT: Atraumatic, normocephalic, pupils reactive, negative for conjunctival pallor or scleral icterus, mucous membranes moist, throat clear, neck supple, nontender, trachea midline. Lungs: Clear to auscultation, breath sounds equal bilaterally, chest tender to palpation there is no reproducible rib tenderness or subcutaneous crepitance. Heart: S1S2, regular, negative for clicks, rubs, or JVD. Abdomen: NABS, Soft, nondistended, nontender no rebound or guarding. Negative for masses or hepatosplenomegaly. Negative for costovertebral tenderness. Pelvis: Stable nontender. Genitourinary: Deferred. Rectal: Deferred. Extremities: Atraumatic, negative for cords or calf pain. Neurovascular unremarkable. Neuro: Awake, alert, oriented. Cranial nerves II through XII unremarkable. Cerebellum unremarkable. Motor and sensory unremarkable throughout. Exam nonfocal. Skin:warm and dry Diagnostics: Chest x-ray, EKG Therapeutics: Toradol ED Course: Stable Impression: Pleuritic chest pain Prescriptions: Diclofenac Plan: Take meds as directed, follow up with your primary care physician, return to ER if symptoms worsen or change. Definitive disposition and diagnosis as appropriate pending reevaluation and review of above. right upper abd Pain Score (Numeric/FACES): 4 - Related Data Allergies Allergy/AdvReac Type Severity Reaction Status Date / Time No Known Allergies Allergy Verified 04/25/19 17:20 Home Meds: Home Meds Propranolol [Inderal LA 24 Hr] 80 mg PO BID 01/08/19 [History] Diclofenac Sodium [Voltaren] 75 mg PO BIDMEALS PRN #20 tab.cr 04/25/19 [Rx] Past Medical History - Past Health History Medical/Surgical History: Denies Medical/Surgical History HEENT History: Reports: None Cardiovascular History: Reports: None Respiratory History: Reports: None Gastrointestinal History: Reports: None Genitourinary History: Reports: None Musculoskeletal History: Reports: Other (See Below) Other Musculoskeletal History: right knee tore acl. Neurological History: Reports: None Psychiatric History: Reports: None Endocrine/Metabolic History: Reports: None Insulin Pump Model and Health Information Systems Technician: N/A Hematologic History: Reports: None Immunologic History: Reports: None Oncologic (Cancer) History: Reports: None Dermatologic History: Reports: None - Infectious Disease History Infectious Disease History: Reports: None - Past Surgical History Head Surgeries/Procedures: Reports: None HEENT Surgical History: Reports: Oral Surgery Musculoskeletal Surgical History: Reports: Other (See Below) Other Musculoskeletal Surgeries/Procedures:: knee surgery Social & Family History - Family History Family Medical History: Noncontributory - Tobacco Use Smoking Status *Q: Never Smoker - Caffeine Use Caffeine Use: Reports: None - Recreational Drug Use Recreational Drug Use: No ED ROS GENERAL - Review of Systems Review Of Systems: See Below ED EXAM, GI/ABD - Physical Exam Exam: See Below Course - Vital Signs Last Recorded V/S: Last Vital Signs Temp 98.0 F 04/25/19 17:18 Pulse 65 04/25/19 17:18 Resp 18 04/25/19 17:18 BP 118/74 04/25/19 17:18 Pulse Ox 98 04/25/19 17:18 - Orders/Labs/Meds Orders: Active Orders 24 hr Category Date Time Status EKG Documentation Completion [RC] STAT Care 04/25/19 17:04 Active Meds: Medications Discontinued Medications Generic Name Dose Route Start Last Admin Trade Name Freq PRN Reason Stop Dose Admin Ketorolac Tromethamine 60 mg 04/25/19 17:32 04/25/19 17:37 Toradol IM 04/25/19 17:33 60 mg ONETIME ONE Administration Departure - Departure Time of Disposition: 17:50 Disposition: Home, Self-Care 01 Condition: Good Clinical Impression: Chest pain Qualifiers: Chest pain type: unspecified Qualified Code(s): R07.9 - Chest pain, unspecified - Discharge Information *PRESCRIPTION DRUG MONITORING PROGRAM REVIEWED*: No *COPY OF PRESCRIPTION DRUG MONITORING REPORT IN PATIENT VIRGIL: No Prescriptions: Diclofenac Sodium [Voltaren] 75 mg PO BIDMEALS PRN #20 tab.cr PRN Reason: Pain Referrals: PCP,Unknown [Primary Care Provider] - Forms: ED Department Discharge Additional Instructions: The following information is given to patients seen in the emergency department who are being discharged to home. This information is to outline your options for follow-up care. We provide all patients seen in our emergency department with a follow-up referral. The need for follow-up, as well as the timing and circumstances, are variable depending upon the specifics of your emergency department visit. If you don't have a primary care physician on staff, we will provide you with a referral. We always advise you to contact your personal physician following an emergency department visit to inform them of the circumstance of the visit and for follow-up with them and/or the need for any referrals to a consulting specialist. The emergency department will also refer you to a specialist when appropriate. This referral assures that you have the opportunity for follow-up care with a specialist. All of these measure are taken in an effort to provide you with optimal care, which includes your follow-up. Under all circumstances we always encourage you to contact your private physician who remains a resource for coordinating your care. When calling for follow-up care, please make the office aware that this follow-up is from your recent emergency room visit. If for any reason you are refused follow-up, please contact the [facility] Emergency Department at and asked to speak to the emergency department charge nurse. Take meds as directed, follow up with your primary care physician, return to ER if symptoms worsen or change. [facility] [address] [place] [id number] - My Orders Last 24 Hours: My Active Orders 04/25/19 17:04 EKG Documentation Completion [RC] STAT - Assessment/Plan Last 24 Hours: My Active Orders 04/25/19 17:04 EKG Documentation Completion [RC] STAT
== END 2019-04-25 18:02 | disposition home or self-care (01) ==
LOC: MW.ED 17:01
DX: R07.81 Pleurodynia (principal)
CPT/HCPCS: 71045; 93005; 96372; 99283; J1885

== ENCOUNTER 2019-12-26 18:19 | Emergency (ER) | payer OTHER ==
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
== END 2019-12-26 19:05 | disposition home or self-care (01) ==
LOC: MW.ED 18:19
DX: F41.9 Anxiety disorder, unspecified (principal); Z79.899 Other long term (current) drug therapy
CPT/HCPCS: 99283

== ENCOUNTER 2019-12-27 20:07 | Emergency (ER) | payer OTHER ==
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
== END 2019-12-27 20:52 | disposition home or self-care (01) ==
LOC: MW.ED 20:07
DX: F32.9 Major depressive disorder, single episode, unspecified (principal); Z76.0 Encounter for issue of repeat prescription; Z76.5 Malingerer [conscious simulation]
CPT/HCPCS: 99281; 99283

== ENCOUNTER 2020-02-23 20:32 | Emergency (ER) | payer OTHER ==
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
[2020-02-23] MEDS ORDERED: Iopamidol 755 Mg/ML 100 ML Bottle IV ONE (20:57)
[2020-02-23] MEDS ORDERED: Iopamidol 755 Mg/ML 100 ML Bottle IVPUSH STA (20:57)
[2020-02-23 21:16] LABS: BLOOD UREA NITROGEN,BUN 15 mg/dL (7.0-18.0); CHLORIDE,CL 104 mmol/L (98-107); GLUCOSE RANDOM 93 mg/dL (74-106); LIPASE 44 U/L (73-393); POTASSIUM,K 3.3 mmol/L (3.5-5.1); SODIUM,NA 141 mmol/L (136-148)
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
--- NOTE | 2020-02-23 22:32 | CR ---
Chest: Portable view of the chest was obtained. Comparison: No prior chest imaging is available. Heart size and mediastinum are normal. Lungs are clear with no acute parenchymal change. Bony structures are grossly intact. Impression: 1. Nothing acute is seen on portable supine chest x-ray. Diagnostic code #1 This report was dictated in MDT
--- NOTE | 2020-02-23 22:38 | CR ---
Pelvis: AP view of the pelvis was obtained. Comparison: No prior pelvis exam. Joint spaces within both hips are maintained. Sacroiliac joints are unremarkable. No fracture or other bony abnormality is appreciated. Contrast is noted within the ureters and bladder. Impression: 1. Nothing acute is seen on AP pelvis study. Diagnostic code #1 This report was dictated in MDT
[2020-02-24] MEDS ORDERED: Iopamidol 755 Mg/ML 100 ML Bottle IVPUSH STA (02:38)
== END 2020-02-23 23:15 ==
LOC: MW.ED 20:32
DX: Z04.1 Encounter for examination and observation following transport accident (principal); F10.129 Alcohol abuse with intoxication, unspecified; F13.10 Sedative, hypnotic or anxiolytic abuse, uncomplicated; Y90.4 Blood alcohol level of 80-99 mg/100 ml; Z79.899 Other long term (current) drug therapy
CPT/HCPCS: 36415; 70450; 70450-26; 71045; 71045-26; 71260; 71260-26; 72125; 72125-26; 72128; 72128-26; 72131; 72131-26; 72170; 72170-26; 74177; 74177-26; 80053; 80305-QW; 80307; 81003; 83690; 83735; 84484; 85025; 85610; 85730; 86900; 86901; 93005; 99283; 99285-25; Q9967

== ENCOUNTER 2020-03-02 20:38 | Emergency (ER) | payer OTHER ==
[2020-03-02] MEDS ORDERED: Sodium Chloride 0.9% 10 ML Syringe FLUSH PRN (20:54)
[2020-03-02] MEDS ORDERED: Sodium Chloride 0.9% 2.5 ML Syringe FLUSH PRN (20:54)
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
--- NOTE | 2020-03-02 21:35 | CR ---
INDICATION: Left sided pleuritic chest pain TECHNIQUE: Chest radiograph 2 views COMPARISON: 02/23/2020 FINDINGS: Mediastinum: The mediastinum is normal in appearance. The heart silhouette is normal in size and morphology. Lung: Both lungs are unremarkable in appearance. No sign of pleural effusion seen. No pneumothorax is identified. Bone and Soft tissue: Unremarkable for age. IMPRESSION: 1. No acute cardiopulmonary disease is seen. Dictated by: Luis Fernando Mendoza MD @ 03/02/2020 21:35:09 (Electronically Signed)
[2020-03-02 21:43] LABS: BLOOD UREA NITROGEN,BUN 20 mg/dL (7.0-18.0); CARBON DIOXIDE,CO2 24.5 mmol/L (21.0-32.0); CHLORIDE,CL 100 mmol/L (98-107); GLUCOSE RANDOM 95 mg/dL (74-106); POTASSIUM,K 3.5 mmol/L (3.5-5.1); SODIUM,NA 135 mmol/L (136-148)
== END 2020-03-02 22:20 | disposition home or self-care (01) ==
LOC: MW.ED 20:38
DX: R09.1 Pleurisy (principal)
CPT/HCPCS: 36415; 71046; 71046-26; 80053; 83880; 84484; 85025; 85379; 93005; 99283; 99284-25